=== PATIENT | female | born 1980 | race American Indian/Alaskan Native ===

== ENCOUNTER 2018-05-03 10:41 | Inpatient (IN) | payer BC ==
[2018-04-30 09:20] VITALS: BMI 31.3
[2018-05-03] MEDS ORDERED: Propofol 10 mg/ml Inj (20 ML) ONE (12:20)
[2018-05-03] MEDS ORDERED: Midazolam 2 MG/2 ML VIAL ONE (12:20)
[2018-05-03] MEDS ORDERED: Rocuronium 10 mg/ml (5 ml) ONE ×2 (12:32→13:49)
[2018-05-03] MEDS ORDERED: Succinylcholine Chloride 20 mg/ml Syr (5 ml) IV ONE (12:32)
[2018-05-03] MEDS ORDERED: Sodium Chloride 0.9% 0 ML IV ONE (13:02)
[2018-05-03] MEDS ORDERED: Bacitracin Ointment 30 GM TUBE ONE (13:02)
[2018-05-03] MEDS ORDERED: Vasopressin 20 Units/ml Inj ONE (13:03)
[2018-05-03] MEDS ORDERED: cefOXitin IV 2 gm in Dextrose 0 GM/0 ML BAG IVPB ONE (13:03)
[2018-05-03] MEDS ORDERED: ceFAZolin IV 2 gm in Dextrose 2 GM/50 ML BAG IVPB ONE (13:11)
[2018-05-03] MEDS ORDERED: Neostigmine Methylsulfate 3mg/3ml Syringe IV ONE (14:04)
[2018-05-03] MEDS ORDERED: ceFAZolin IV 1 gm in Dextrose 1 GM/50 ML BAG IVPB SCH (14:30)
[2018-05-03] MEDS: HYDROmorphone 0.5 mg/0.5 ml ISec IVP PRN ×2 (14:38→14:54)
[2018-05-03] MEDS ORDERED: HYDROmorphone 0.5 mg/0.5 ml ISec ONE (14:40)
--- NOTE | 2018-05-03 14:44 | PCM.OP ---
Operative Report - Operative Report Date of Surgery/Procedure: 05/03/18 Time of Surgery/Procedure: 14:00 Surgeon: Dr. Boyd Brake Press Operator: Dr. Spring Anesthesia/Sedation: Dr. Flores Pre-Operative Diagnosis: Fibroid Uterus, Multiple Post-Operative Diagnosis: Same Indication for Surgery: Multiple fibroids with heavy vaginal bleeding Operative Findings: Multiple Fibroid Uterus, Largest one 7-8 Cm (5) Procedure/Operation Description: Abdominal Myomectomy, Multiple Estimated Blood Loss: 100 cc Complications: None Discharge & Condition: Satisfactory
[2018-05-03] MEDS ORDERED: Lactated Ringer's 1,000 ML IV SCH (15:00)
[2018-05-03] MEDS: ceFAZolin IV 1 gm in Dextrose 1 GM/50 ML BAG IVPB SCH (21:35)
[2018-05-04] MEDS: ceFAZolin IV 1 gm in Dextrose 1 GM/50 ML BAG IVPB SCH ×2 (05:29→12:37)
[2018-05-04 08:14] LABS: BASO % 0.3 % (0.0-2.0); HEMOGLOBIN 11.3 g/dL (11.0-16.0); LYMPH # 1.7 K/uL (1.0-4.3); LYMPH % 13.4 % (20.0-40.0); MEAN CELL VOLUME 87.5 fL (81.0-99.0); MEAN CORPUSCULAR HEMOGLOBIN 28.9 pg (27.0-31.0); MEAN CORPUSCULAR HGB CONC 33.1 g/dL (33.0-37.0); MEAN PLATELET VOLUME 7.6 fL (7.2-11.7); MONO # 0.5 K/uL (0.0-0.8); MONO % 4.3 % (0.0-10.0); NEUT # 10.3 K/uL (1.8-7.0); RBC 3.89 Mil/uL (3.80-5.20); RED CELL DISTRIBUTION WIDTH 13.7 % (11.5-14.5)
[2018-05-04 08:23] LABS: WHITE BLOOD COUNT 12.6 K/uL (4.8-10.8)
--- NOTE | 2018-05-04 16:09 | CP.PCM.PN ---
Subjective - Date & Time of Evaluation Date of Evaluation: 05/04/18 Time of Evaluation: 16:00 - Subjective Subjective: POD #1 No C/O VS Stable Abdomen Soft Wound Clean P: Home in AM if stable Objective - Vital Signs/Intake and Output Vital Signs (last 24 hours): Temp Pulse Resp BP Pulse Ox 97.1 F L 53 L 18 113/80 99 05/04/18 08:00 05/04/18 08:00 05/04/18 08:00 05/04/18 08:00 05/04/18 08:00 Intake and Output: 05/04/18 05/04/18 06:59 18:59 Intake Total 125 Balance 125 - Medications Medications: Current Medications Enoxaparin Sodium (Lovenox) 30 mg SC BID JHOAN Lactated Ringer's (Lactated Ringer's) 1,000 mls @ 125 mls/hr IV .Q8H JHOAN Ondansetron HCl (Zofran Inj) 4 mg IVP ONCE PRN PRN Reason: Nausea/Vomiting Oxycodone/Acetaminophen (Percocet 5/325 Mg Tab) 1 tab PO Q4 PRN PRN Reason: Pain, moderate (4-7) Stop: 05/06/18 14:31 - Labs Labs: 05/04/18 07:56
--- NOTE | 2018-05-04 16:12 | CP.PCM.DIS ---
Provider - Provider Date of Admission: 05/03/18 10:41 Pre-op DX: Multiple Fibroid Uterus Post-op Dx; Same Operation: Abdominal Myomectomy Condition: Satisfactory Attending physician: Jeremie Boyd MD Time Spent in preparation of Discharge (in minutes): 15 Hospital Course - Lab Results Lab Results: Most Recent Lab Values WBC 12.6 K/uL (4.8-10.8) H D 05/04/18 07:56 RBC 3.89 Mil/uL (3.80-5.20) 05/04/18 07:56 Hgb 11.3 g/dL (11.0-16.0) 05/04/18 07:56 Hct 34.0 % (34.0-47.0) 05/04/18 07:56 MCV 87.5 fL (81.0-99.0) 05/04/18 07:56 MCH 28.9 pg (27.0-31.0) 05/04/18 07:56 MCHC 33.1 g/dL (33.0-37.0) 05/04/18 07:56 RDW 13.7 % (11.5-14.5) 05/04/18 07:56 Plt Count 250 K/uL (130-400) 05/04/18 07:56 MPV 7.6 fL (7.2-11.7) 05/04/18 07:56 Neut % (Auto) 82.0 % (50.0-75.0) H 05/04/18 07:56 Lymph % (Auto) 13.4 % (20.0-40.0) L 05/04/18 07:56 [place] % (Auto) 4.3 % (0.0-10.0) 05/04/18 07:56 Eos % (Auto) 0.0 % (0.0-4.0) 05/04/18 07:56 Baso % (Auto) 0.3 % (0.0-2.0) 05/04/18 07:56 Neut # (Auto) 10.3 K/uL (1.8-7.0) H 05/04/18 07:56 Lymph # (Auto) 1.7 K/uL (1.0-4.3) 05/04/18 07:56 [place] # (Auto) 0.5 K/uL (0.0-0.8) 05/04/18 07:56 Eos # (Auto) 0.0 K/uL (0.0-0.7) 05/04/18 07:56 Baso # (Auto) 0.0 K/uL (0.0-0.2) 05/04/18 07:56 Blood Type A POSITIVE 05/03/18 11:12 Antibody Screen Negative 05/03/18 11:12 Discharge Plan - Follow Up Plan Condition: GOOD Disposition: HOME/ ROUTINE
[2018-05-04 16:37] VITALS: BP 117/79
[2018-05-04] MEDS: Simethicone 80 mg Chewtab PO SCH ×2 (17:36→21:49)
[2018-05-04] MEDS: Oxycodone/Acetaminophen 5/325 mg Tab PO PRN (19:56)
[2018-05-04] MEDS ORDERED: Enoxaparin 30 mg Syringe SC SCH ×2 (22:00)
[2018-05-05 00:04] VITALS: PULSE 63; RESP 20; TEMP 97.8; O2SAT 98
[2018-05-05] MEDS: Oxycodone/Acetaminophen 5/325 mg Tab PO PRN (04:48)
--- NOTE | 2018-05-06 08:14 | OP ---
PROCEDURE DATE: 05/03/2018 NATURE OF OPERATION: Multiple abdominal myomectomy. ATTENDING SURGEON: Jeremie Boyd MD. FLASK PUSHER: Dr. Spring. BOOK CANVASSER: Dr. Sutton. KIND OF ANESTHESIA: General. PREOPERATIVE DIAGNOSIS: Multiple fibroid uterus. POSTOPERATIVE DIAGNOSIS: Multiple fibroid uterus. ESTIMATED BLOOD LOSS: 100 mL. FINDINGS: The uterus was enlarged to 14 weeks size of with multiple fibroids of varying sizes. Both adnexa were within normal limit. DESCRIPTION OF PROCEDURE: Under general anesthesia, the patient was placed in supine position. The routine prep was done. The anterior abdominal wall was draped. The abdominal cavity was entered through a vertical midline incision. Pelvic organs were palpated and visualized. Self-retaining retractor was placed in the abdominal cavity and bowel loops were packed away using wet gauze pack. There was large about a 1 cm fibroid on the fundus, which was grasped with the hand to manipulate and remove the rest of the fibroid. The multiple leiomyoma located and the myomectomy was initiated. The transverse incision was made with the electrocautery on top of the uterine fundus. On top of the fibroid, the capsule of the fibroid was identified and enucleated from the surrounding capsule. The space was approximated with 0 chromic suture, continuous suture. Then, the serosa was reapproximated with #2-0 chromic in continuous interlocking fashion. The same step was repeated on the rest of the leiomyoma and somewhat pedunculated fundal fibroid was excised, and 0 chromic continuous interlocking suture was performed and then the serosa was reapproximated with the #2-0 chromic suture ligature and then Interceed was placed. No bleeding was noted. The abdominal cavity was cleaned and the abdominal closure was then started. The peritoneum was closed with the 0 chromic catgut continuous stitch. The continuous interlocking stitches of 0 Vicryl for fascia and interrupted #2-0 plain catgut was used for subcutaneous tissue and the skin was closed with the shyanne. Wound was cleaned and sterile dressing applied. At the end of the procedure, urine was clear. The patient tolerated the procedure well and was sent to the recovery room in satisfactory condition. Jeremie Boyd MD [facility] # [id number]
== END 2018-05-05 09:36 | disposition home or self-care (01) | DRG 743 ==
LOC: C.9S 10:41 → C.4M 14:07
PROVIDERS: ADMIT Obstetrics & Gynecology Gynecology; ATTEND Obstetrics & Gynecology Gynecology
PROC: 0UB90ZZ Excision of Uterus, Open Approach (ICD-10-PCS; principal; 2018-05-03 13:00)
DX: D25.9 Leiomyoma of uterus, unspecified (principal); N93.8 Other specified abnormal uterine and vaginal bleeding